=== PATIENT | male | born 1965 | race Caucasian/White ===

== ENCOUNTER 2021-07-06 16:48 | Emergency (ER) | payer BC ==
[~2021-07-06] VITALS: Ht 188 cm; Wt 104.3 kg
--- NOTE | 2021-07-06 17:09 | NUR ---
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 PINKY BRUISED AND SWOLLEN AND NAILED CRACKED IN HALF AT NAIL BED. SMALL PUNCTURE WOUND NOTED TO FOREHEAD, NOTIFIED OF PT ARRIVAL AND DR TO ROOM. [facility] HAD TETANUS VACINNE 6 MONTHS AGO
--- NOTE | 2021-07-06 17:21 | ER.PDOC ---
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 Noted Review of Systems All Other Systems: Reviewed and Negative Physical Exam General Appearance: Alert, No Apparent Distress Hand: nail partial avulsion Wrist: nml inspection, non-tender, nml ROM 1 - hematoma Results/Orders Results/Orders Orders - DEEP WHITE MD Xr Finger Lt (07/06/21 17:16) Neomycin/Bacitracin/Polymyxinb (Triple A (07/06/21 18:05) Vital Signs Date Time Temp Pulse Resp B/P (MAP) Pulse Ox O2 Delivery O2 Flow Rate FiO2 07/06/21 17:42 98.3 64 20 144/85 (104) 96 Room Air 07/06/21 17:34 98.3 64 20 96 07/06/21 17:34 98.3 64 20 ER DEPART Departure Time of Disposition: 18:00 Disposition: 01 HOME / SELF CARE / HOMELESS Impression: Primary Impression: Crush injury to finger Condition: Stable Referrals: JAKUB KITCHEN NP (PCP) PRIMARY CARE PROVIDER Duration or Time Spent with Pa: 13m DEEP WHITE MD Jul 06, 2021 17:21
[2021-07-06 17:34] VITALS: BP 144/85
[2021-07-06 17:42] VITALS: BP 144/85
--- NOTE | 2021-07-06 17:53 | DIREP ---
PROCEDURE:XRAY FINGER-LT COMPARISON:None. INDICATIONS:injury TECHNIQUE:Three views of the left 5th digit obtained. FINDINGS: BONES:Question nondisplaced fracture of the 5th digit distal phalanx. Bony detail limited by overlying bandage material. JOINTS:Mild 5th DIP joint degenerative changes. SOFT TISSUES:Bandage material and soft tissue swelling about the 5th digit. OTHER:No additional findings. CONCLUSION: 1. Questionable nondisplaced 5th digit distal phalanx fracture, bony detail limited by bandage material. If there is involvement of the nail bed, fracture should be treated as an open fracture given increased risk of osteomyelitis. Dictated by: Albaro Simon M.D. on 07/06/2021 at 05:50 PM
--- NOTE | 2021-07-06 18:00 | NUR ---
DRESSING NEOSPORIN APPLIED TO PINKY WOUND AND COVERED WITH BANDAIDE
[2021-07-06] MEDS ORDERED: TRIPLE ANTIBIOTIC OINTMENT TP ONE (18:05)
== END 2021-07-06 18:19 | disposition home or self-care (01) ==
LOC: ER 16:48
DX: S67.197A Crushing injury of left little finger, initial encounter (principal); S01.03XA Puncture wound without foreign body of scalp, initial encounter; Z88.0 Allergy status to penicillin; W22.8XXA Striking against or struck by other objects, initial encounter; Y93.89 Activity, other specified; Y92.89 Other specified places as the place of occurrence of the external cause; Y99.0 Civilian activity done for income or pay
CPT/HCPCS: 99283; 73140-LT